=== PATIENT | female | born 1945 | race Caucasian/White ===

== ENCOUNTER 2017-12-04 10:31 | Emergency (ER) | payer MEDICARE, OTHER ==
[2017-12-04 12:13] VITALS: BP 129/62
--- NOTE | 2017-12-04 13:27 | UC ---
Cardiac HPI - HPI Summary HPI Summary: pt presents with c/o left lateral rib pain. Pt states she has been coughing and felt a sudden sharp pain to left lateral lower, ribs, Pain is reproducible with palpation. - History of Current Complaint Chief Complaint: UCGeneralIllness Stated Complaint: COUGH/LFT RIB AREA PAIN Time Seen by Provider: 12/04/17 13:06 Hx Obtained From: Patient Hx Last Menstrual Period: n/a Onset/Duration: Sudden Onset, Lasting Days, Still Present Timing: Constant Initial Severity: Moderate Current Severity: Moderate Pain Intensity: 8 Chest Pain Location: Left Lateral Aggravating Factor(s): Movement, Deep Breaths Alleviating Factor(s): Rest, Position Associated Signs & Symptoms: Positive: Cough - Risk Factors Pulmonary Embolism Risk Factors: Malignancy - 1996 breat cancer, Smoking Cardiac Risk Factors: Smoking Atrial Fibrillation: Mitral Valve Disease TAD Risk Factors: Smoking AMI/ACS Risk Factors: Smoking - Allergy/Home Medications Allergies/Adverse Reactions: Allergies Allergy/AdvReac Type Severity Reaction Status Date / Time hydrocodone Allergy GI Upset Verified 12/04/17 12:08 PMH/Surg Hx/FS Hx/Imm Hx Previously Healthy: No Cardiovascular History: Cardiac Disease, Other - valve replacements Other Cardiovascular History: valve replacements Cancer History: Breast Cancer - 1996 - Surgical History Surgical History: Yes Surgery Procedure, Year, and Place: right breast mastectomy, kneex4, appy, tubal ligation, carpal tunnel, atrial and mitral valves 2009; cardiac stents, defirillator mavis 11/2014 Other Surgical History: stents- chest and abdomen. RIGHT MASTECTOMY. DIFIBRILATOR INSERTED 12.20.14. kneex4, appy, tubal ligation, carpal tunnel, atrial and mitral valves 2009; cardiac stents, defirillator mavis 11/2014 - Family History Known Family History: Positive: Cardiac Disease, Hypertension - Social History Occupation: Retired Lives: With Family Alcohol Use: Rare Substance Use Type: None Smoking Status (MU): Current Every Day Smoker Type: Cigarettes Amount Used/How Often: 1 PPD Length of Time of Smoking/Using Tobacco: 50 years Have You Smoked in the Last Year: Yes Household Exposure Type: Cigarettes - Immunization History Most Recent Influenza Vaccination: NOT IN 2013 Most Recent Tetanus Shot: 2013 Review of Systems Constitutional: Negative Skin: Negative Eyes: Negative ENT: Negative Respiratory: Cough Cardiovascular: Negative Gastrointestinal: Negative Genitourinary: Negative Motor: Decreased ROM - left lateral ribs Neurovascular: Negative Musculoskeletal: Arthralgia, Decreased ROM - left lateral ribs, Myalgia - left lateral trunk Neurological: Negative Psychological: Negative Is Patient Immunocompromised?: No All Other Systems Reviewed And Are Negative: Yes Physical Exam Triage Information Reviewed: Yes Appearance: Ill-Appearing, Pain Distress, Thin Vital Signs: Initial Vital Signs Temp 97.8 F 12/04/17 12:06 Pulse 86 12/04/17 12:06 Resp 20 12/04/17 12:06 BP 129/62 12/04/17 12:06 Pulse Ox 100 12/04/17 12:06 Vital Signs Reviewed: Yes Eye Exam: Normal ENT Exam: Normal Neck exam: Normal Respiratory Exam: Other Respiratory: Positive: Decreased breath sounds Cardiovascular Exam: Other Cardiovascular: Positive: Murmur:Sys:Grade _?_/ Musculoskeletal Exam: Other Musculoskeletal: Positive: ROM Limited @ - chest/ribs, Other: - tenedrness, left lateral ribs 8-10 Neurological Exam: Normal Psychological Exam: Normal Skin Exam: Normal Diagnostics - Laboratory Diagnostic Studies Completed/Ordered: IMPRESSION: NO DISPLACED RIB FRACTURE OR PNEUMOTHORAX. - Radiology No standard instances Radiology Interpretation Completed By: Radiologist - IMPRESSION: NO DISPLACED RIB FRACTURE OR PNEUMOTHORAX. - Assessment/Plan Course Of Treatment: I discussed with the pt my conerns about possible PE. I recommned that the pt have CTA at todays visit. Pt refused testing. I recommended that pt go to the closest ER for further testing and evaluation and pt declined recommendation. - Differential Diagnoses - Chest Pain Differential Diagnosis/HQI/PQRI: Acute OK, Pulmonary Embolism - Differential Diagnoses - Palpitations Differential Diagnosis/HQI/PQRI: Pulmonary Embolism - Clinical Impression Provider Diagnoses: costochondritis. rib pain. cough Discharge - Discharge Plan Condition: Stable Disposition: HOME Prescriptions: predniSONE TAB* [Deltasone TAB*] 30 mg PO DAILY #12 tab Patient Education Materials: Chest Pain (ED), Costochondritis (ED) Referrals: [facility] [Outside] Non Staff,Doctor [Primary Care Provider] - Additional Instructions: It is recommended that you seek further evaluation and testing at the closest Emergency room. You have refused further testing at our facility.
--- NOTE | 2017-12-04 13:42 | RAD ---
HISTORY: Rib pain, cough COMPARISONS: January 20, 2015 VIEWS: 5, Frontal view of the chest with frontal and oblique views of the left hemithorax FINDINGS: There is no displaced rib fracture or pneumothorax. The visualized lungs are clear. No left-sided pacemaker is noted. A prosthetic cardiac valve is noted. IMPRESSION: NO DISPLACED RIB FRACTURE OR PNEUMOTHORAX.
== END 2017-12-04 14:11 | disposition home or self-care (01) ==
LOC: UCCORT 10:31
DX: M94.0 Chondrocostal junction syndrome [Tietze] (principal); R07.81 Pleurodynia; R05 Cough; Z95.810 Presence of automatic (implantable) cardiac defibrillator; Z95.2 Presence of prosthetic heart valve; F17.210 Nicotine dependence, cigarettes, uncomplicated
CPT/HCPCS: 99212; G0463